=== PATIENT | female | born 1985 | race Two or more races ===

== ENCOUNTER 2024-02-25 13:58 | Outpatient (CLI) | payer OTHER | END 2024-02-25 14:00 | disposition home or self-care (01) | LOC: PRENATAL 13:58 | PROVIDERS: ATTEND Obstetrics & Gynecology Maternal & Fetal Medicine | DX: O36.80X0 Pregnancy with inconclusive fetal viability, not applicable or unspecified (principal); Z36.82 Encounter for antenatal screening for nuchal translucency; O09.519 Supervision of elderly primigravida, unspecified trimester; O99.891 Other specified diseases and conditions complicating pregnancy; Z36.9 Encounter for antenatal screening, unspecified; Z14.8 Genetic carrier of other disease; Z3A.11 11 weeks gestation of pregnancy ==

== ENCOUNTER → 2024-04-20 13:23 | Outpatient (CLI) | payer OTHER | END | disposition home or self-care (01) | LOC: PRENATAL 13:23 | PROVIDERS: ATTEND Obstetrics & Gynecology Maternal & Fetal Medicine | DX: O44.00 Complete placenta previa NOS or without hemorrhage, unspecified trimester (principal); O09.519 Supervision of elderly primigravida, unspecified trimester; Z3A.20 20 weeks gestation of pregnancy ==

== ENCOUNTER 2024-07-18 09:02 | Outpatient (CLI) | payer OTHER | END 2024-07-18 09:04 | disposition home or self-care (01) | LOC: PRENATAL 09:02 | PROVIDERS: ATTEND Obstetrics & Gynecology Maternal & Fetal Medicine | DX: O26.849 Uterine size-date discrepancy, unspecified trimester (principal); O36.8199 Decreased fetal movements, unspecified trimester, other fetus; O09.519 Supervision of elderly primigravida, unspecified trimester; O99.280 Endocrine, nutritional and metabolic diseases complicating pregnancy, unspecified trimester; O36.60X0 Maternal care for excessive fetal growth, unspecified trimester, not applicable or unspecified; O60.00 Preterm labor without delivery, unspecified trimester; Z3A.34 34 weeks gestation of pregnancy ==

== ENCOUNTER 2024-08-18 09:56 | Outpatient (CLI) | payer OTHER | END 2024-08-18 09:57 | disposition home or self-care (01) | LOC: PRENATAL 09:56 | PROVIDERS: ATTEND Obstetrics & Gynecology Maternal & Fetal Medicine | DX: O26.849 Uterine size-date discrepancy, unspecified trimester (principal); O36.8199 Decreased fetal movements, unspecified trimester, other fetus; O09.519 Supervision of elderly primigravida, unspecified trimester; O99.280 Endocrine, nutritional and metabolic diseases complicating pregnancy, unspecified trimester; O36.60X0 Maternal care for excessive fetal growth, unspecified trimester, not applicable or unspecified; Z3A.38 38 weeks gestation of pregnancy ==

== ENCOUNTER 2024-08-31 14:56 | Inpatient (IN) | payer OTHER ==
[~2024-08-31] VITALS: Ht 154.9 cm; Wt 3.6 kg
[2024-08-31] MEDS ORDERED: PRENATABS RX T1 EACH PO (15:54)
[2024-08-31] MEDS ORDERED: CHILDREN'S ASPI81 MG PO (15:54)
[2024-08-31] MEDS ORDERED: LEVOTHYROXINE25 MCG (15:54)
[2024-08-31 16:07] LABS: PH,URINE 6.5 (5.0-8.0); URINE APPEARANCE Cloudy; URINE BILIRRUBIN Negative (NEGATIVE); URINE BLOOD Negative; URINE COLOR Yellow; URINE GLUCOSE Negative (NEGATIVE); URINE KETONE Negative (NEGATIVE); URINE LEUKOCYTE Negative; URINE NITRATE Negative; URINE PROTEIN Trace (NEGATIVE)
[2024-08-31 16:08] LABS: HEMATOCRIT 36.5 % (36.0-45.00); HEMOGLOBIN 12.4 g/dL (12.0-15.00); MEAN CELL VOLUME 89.5 fL (80.00-100.00); MEAN CORPUSCULAR HEMOGLOBIN 30.3 pg (27.00-32.0); MEAN CORPUSCULAR HGB CONC 33.8 g/dl (32.0-36.0); PLATELET COUNT 240 K/uL (150-450); RED BLOOD COUNT 4.08 M/uL (4.00-6.00); RED CELL DISTRIBUTION WIDTH 14.3 % (11.5-14.5)
[2024-08-31 16:11] LABS: URINE BACTERIA 1299.7 uL (0.0-1933); URINE EPITHELIAL CELLS 200.2 uL (0.0-38.8); URINE RBC 15.6 uL (0.0-20.8); URINE WBC 5.2 uL (0.0-23.2)
[2024-08-31 16:32] LABS: INR < 0.93; PARTIAL THROMBOPLASTIN TIME 24.5 SECONDS (22.0-34.0); PROTHROMBIN TIME 10.2 SECONDS (9.0-11.5)
[2024-08-31 16:36] LABS: ALBUMIN 2.8 gm/dL (3.4-5.0); BILIRUBIN TOTAL 0.66 mg/dL (0.3-1.2); CALCIUM 9.4 mg/dL (8.5-10.1); CREATININE SERUM 0.65 mg/dL (0.55-1.02); GFR 102.56; GLOBULINA 3.7 G/DL (2.4-3.5); POTASSIUM 4.31 mEq/L (3.5-5.1); TOTAL PROTEIN 6.5 gm/dL (6.4-8.2)
[2024-09-05 01:20] VITALS: BP 133/77
[2024-09-05 01:30] VITALS: BP 117/81; BP 133/77
[2024-09-05] MEDS ORDERED: RINGERS SOLUTION,LACTATED 1,000 ML IV SCH ×2 (02:00→13:00)
[2024-09-05] MEDS ORDERED: CEFAZOLIN SODIUM 1,000 MG VIAL IV ONE (02:00)
[2024-09-05 02:03] LABS: PH,URINE 6.5 (5.0-8.0); URINE APPEARANCE Cloudy; URINE BILIRRUBIN Negative (NEGATIVE); URINE BLOOD Negative; URINE COLOR Yellow; URINE GLUCOSE Negative (NEGATIVE); URINE KETONE Negative (NEGATIVE); URINE LEUKOCYTE Negative; URINE NITRATE Negative; URINE PROTEIN Negative (NEGATIVE); URINE UROBILINOGEN 0.2 E.U./dl
[2024-09-05 02:05] LABS: HEMATOCRIT 33.7 % (36.0-45.00); HEMOGLOBIN 11.5 g/dL (12.0-15.00); MEAN CELL VOLUME 90.3 fL (80.00-100.00); MEAN CORPUSCULAR HEMOGLOBIN 30.9 pg (27.00-32.0); MEAN CORPUSCULAR HGB CONC 34.2 g/dl (32.0-36.0); PLATELET COUNT 211 K/uL (150-450); RED BLOOD COUNT 3.73 M/uL (4.00-6.00)
[2024-09-05 02:06] LABS: URINE BACTERIA 934.7 uL (0.0-1933); URINE EPITHELIAL CELLS 118.9 uL (0.0-38.8); URINE RBC 2.3 uL (0.0-20.8); URINE WBC 3.1 uL (0.0-23.2)
[2024-09-05 02:21] LABS: INR < 0.93; PARTIAL THROMBOPLASTIN TIME 23.4 SECONDS (22.0-34.0); PROTHROMBIN TIME 10.1 SECONDS (9.0-11.5)
[2024-09-05 03:09] LABS: ALBUMIN 2.5 gm/dL (3.4-5.0); POTASSIUM 3.84 mEq/L (3.5-5.1)
[2024-09-05 03:14] LABS: BILIRUBIN TOTAL 0.41 mg/dL (0.3-1.2); CREATININE SERUM 0.67 mg/dL (0.55-1.02); GFR 99.04; GLOBULINA 3.1 G/DL (2.4-3.5); TOTAL PROTEIN 5.6 gm/dL (6.4-8.2)
[2024-09-05 03:29] VITALS: BP 128/80
[2024-09-05 06:06] VITALS: BP 117/71; O2SAT 99
[2024-09-05] MEDS ORDERED: CEFAZOLIN SODIUM 1,000 MG VIAL IV SCH (10:15)
[2024-09-05 11:25] VITALS: BP 143/68; O2SAT 97
[2024-09-05] MEDS ORDERED: ONDANSETRON HCL 2 MG/ML VIAL IV ONE (13:00)
[2024-09-05] MEDS ORDERED: ONDANSETRON HCL 2 MG/ML VIAL IV PRN (13:00)
[2024-09-05] MEDS ORDERED: OXYTOCIN 1,000 ML IV SCH (13:00)
[2024-09-05] MEDS ORDERED: MORPHINE SULFATE 4 MG/ML CARTRIDGE IV PRN (13:00)
[2024-09-05] MEDS ORDERED: KETOROLAC TROMETHAMINE 30 MG VIAL IV NR (13:00)
[2024-09-05] MEDS ORDERED: SIMETHICONE 125 MG CAPSULE PO SCH (13:00)
[2024-09-05] MEDS ORDERED: MORPHINE SULFATE 2 MG/ML CARTRIDGE IV ONE (14:35)
[2024-09-05 15:04] LABS: ABG PH 7.328 (7.35-7.45); ABG PO2 79.4 mmHg (80-100); BASE EXCESS -5.3 mmol/l; BICARBONATE 20.3 mmol/l (23-25); SaO2 94.3 %; Tco2 21.5 mmol/l; allen test SATISFACTORY; o2 100 %; puncture site RADIAL LEFT
[2024-09-05 15:05] LABS: ABG pCO2 39.5 mmHg (35-45)
[2024-09-05] MEDS ORDERED: ERYTHROMYCIN BASE OPHT 1GM EACH TUBE OP ONE (15:15)
[2024-09-05] MEDS ORDERED: KETOROLAC TROMETHAMINE 30 MG VIAL IV SCH (18:00)
[2024-09-05] MEDS ORDERED: ACETAMINOPHEN 325 MG TABLET PO SCH (18:00)
[2024-09-06] MEDS ORDERED: OxyCODONE HCL 5 MG TABLET (ROXICODONE) PO PRN (06:00)
[2024-09-06] MEDS ORDERED: MORPHINE SULFATE 4 MG/ML VIAL IV ONE (06:00)
[2024-09-06 07:01] LABS: HEMATOCRIT 30.8 % (36.0-45.00); HEMOGLOBIN 10.7 g/dL (12.0-15.00); MEAN CELL VOLUME 89.8 fL (80.00-100.00); MEAN CORPUSCULAR HEMOGLOBIN 31.2 pg (27.00-32.0); MEAN CORPUSCULAR HGB CONC 34.7 g/dl (32.0-36.0); PLATELET COUNT 188 K/uL (150-450); RED BLOOD COUNT 3.42 M/uL (4.00-6.00)
[2024-09-06 08:37] LABS: ABG PH 7.405 (7.35-7.45); ABG pCO2 37.9 mmHg (35-45); BASE EXCESS -1.1 mmol/l; BICARBONATE 23.2 mmol/l (23-25); SaO2 98.9 %; Tco2 24.4 mmol/l
[2024-09-06] MEDS ORDERED: IBUprofen 400 MG TABLET PO SCH (09:00)
[2024-09-06] MEDS ORDERED: PNV,CALCIUM 72/IRON/FOLIC ACID 1 TAB TABLET PO SCH (09:00)
[2024-09-06 09:55] VITALS: BP 133/73
[2024-09-06 15:15] LABS: allen test SATISFACTORY; o2 40 %; puncture site RADIAL RIGHT
[2024-09-06 17:11] VITALS: BP 128/72
[2024-09-07] VITALS: BP 126/78
[2024-09-07 09:02] VITALS: BP 125/73
[2024-09-07] MEDS ORDERED: CHLORHEXIDINE GLUCONATE 120 ML BOTTLE TOP SCH (09:44)
== END 2024-09-07 13:49 | disposition home or self-care (01) | DRG 788 ==
LOC: LDR 09-05 01:25 → OB/GYN 09-05 01:25 → LDR 09-05 07:00 → O/R 09-05 12:25 → OB/GYN 09-05 13:24 → LDR 09-05 14:15 → OB/GYN 09-07 13:49
PROVIDERS: Anesthesiology; Obstetrics & Gynecology; Specialist; ADMIT Student in an Organized Health Care Education/Training Program; ATTEND Student in an Organized Health Care Education/Training Program
PROC: 4A1HXCZ Monitoring of Products of Conception, Cardiac Rate, External Approach (ICD-10-PCS; 2024-09-05)
PROC: 10D00Z1 Extraction of Products of Conception, Low, Open Approach (ICD-10-PCS; principal; 2024-09-05 07:00)
DX: O36.63X0 Maternal care for excessive fetal growth, third trimester, not applicable or unspecified (principal); O36.8330 Maternal care for abnormalities of the fetal heart rate or rhythm, third trimester, not applicable or unspecified; O99.824 Streptococcus B carrier state complicating childbirth; Z3A.39 39 weeks gestation of pregnancy; Z37.0 Single live birth